=== PATIENT | female | born 1960 | race Caucasian/White ===

== ENCOUNTER 2016-11-15 06:30 | Day surgery (SDC) | payer MEDICARE ==
[~2016-11-15] VITALS: Ht 162.6 cm; Wt 72.6 kg
--- NOTE | ~2016-11-15 | OP ---
PATIENT NAME: DARWIN REYNOSO MEDICAL RECORD: [id number] :60 LOCATION:D[facility] ADMISSION DATE: SURGEON: MONSTER CORTEZ DPM DATE OF OPERATION: 11/15/2016 PREOPERATIVE DIAGNOSIS: Arthritis, left hallux IPJ. POSTOPERATIVE DIAGNOSIS: Arthritis, left hallux IPJ. PROCEDURE: Left hallux IPJ fusion. ANESTHESIA: Local with IV sedation utilizing lidocaine and Marcaine plain, approximately 5 cc total around the left hallux. HEMOSTASIS: Left ankle tourniquet at 250 mmHg. PREOPERATIVE DETAILS: The patient was taken to the OR and placed on the operating table in supine position. This was followed by induction of anesthesia and infiltration of local anesthetic. The left extremity was then prepped and draped in the usual aseptic technique followed by exsanguination and inflation of tourniquet. A 15 blade was used to create a transverse incision across the dorsal aspect of the hallux IPJ. The incision was deepened down to the extensor longus tendon, which was transected. The head of the proximal phalanx and the base of the distal phalanx were then delivered. A sagittal saw was used to resect both. The fusion site was then temporarily fixated with a K-wire. Good alignment was noted with the C-arm. Overdrill was performed and a 40-mm 3.5 headless screw was placed across the fusion site with excellent internal rigid fixation. Verification of good placement was done via C-arm. The wound was flushed and the extensor longus tendon was reapproximated with 2-0 Vicryl. The subcutaneous tissue was reapproximated with 4-0 Rapide and the skin was closed with 4-0 Rapide in a subcuticular technique. A small stab incision on the distal aspect of the hallux was also closed with 4-0 Rapide in a simple interrupted technique. Incisions were then augmented with Dermabond followed by Adaptic, 4 x 4 and Paul and Coban. Tourniquet was deflated. POSTOPERATIVE DETAILS: The patient tolerated the procedure well and left the OR with vital signs stable and vascular status at preoperative levels. The patient was transported to recovery per anesthesia in stable condition. TRANSINT:[id number] Voice Confirmation ID: [id number] DOCUMENT ID: [id number] MONSTER CORTEZ DPM CC: [id number] DICTATION DATE: 11/15/16 1102 FOOD TESTER: 11/15/16 1251 REG [facility] [address] [id number]
[2016-11-15] MEDS ORDERED: NEURONTIN800 MG PO (07:13)
[2016-11-15] MEDS ORDERED: LEVOTHYROXINE50 MCG PO (07:13)
[2016-11-15] MEDS ORDERED: HCTZ25 MG PO (07:14)
[2016-11-15] MEDS ORDERED: ZANAFLEX4 MG PO (07:14)
[2016-11-15] MEDS ORDERED: ZOVIRAX400 MG PO (07:15)
[2016-11-15] MEDS ORDERED: XANAX0.5 MG PO (07:18)
[2016-11-15] MEDS ORDERED: DULERA 200 MCG8.8 GM INH (07:18)
[2016-11-15] MEDS ORDERED: AMBIEN5 MG PO (07:19)
[2016-11-15] MEDS ORDERED: ESTRACE1 MG PO (07:19)
[2016-11-15] MEDS ORDERED: PERCOCET 5-3251 TAB PO (07:19)
[2016-11-15] MEDS ORDERED: RISPERDAL1 MG PO (07:19)
[2016-11-15] MEDS ORDERED: LOTENSIN40 MG PO (07:20)
[2016-11-15] MEDS ORDERED: MIRALAX17 GM PO (07:28)
[2016-11-15 07:32] VITALS: BP 130/60; Ht 162.6 cm; Wt 72.6 kg
[2016-11-15 08:05] LABS: HEMATOCRIT 37.6 % (36.0-48.0); HEMOGLOBIN 13.5 g/dL (12-16); MCH 31.4 pg (26.0-34.0); MCHC 35.9 g/dL (31.0-37.0); MCV 87.4 fL (80.0-100.0); MEAN PLATELET VOLUME 9.6 fL (7.4-10.4); RBC 4.3 10x6/uL (4.00-5.40); RDW 12.3 % (11.5-14.5); WBC 6.5 10x3/uL (4.8-10.8)
[2016-11-15 08:33] LABS: CALC OSMOLALITY 276 mosm/kg (275-300); CALCIUM 9.4 mg/dL (8.5-10.1); CARBON DIOXIDE 27.2 mmol/L (21.0-32.0); CHLORIDE - SERUM 102 mmol/L (98-107); CREATININE - SERUM 0.7 mg/dL (0.6-1.3); GLUCOSE 128 mg/dL (74-106); POTASSIUM - SERUM 3.2 mmol/L (3.5-5.1); SODIUM 138 mmol/L (136-145); UREA NITROGEN 10 mg/dL (7-18); eGFR NON AFRICAN AMERICAN > 90 mL/min (90-120)
== END 2016-11-15 13:00 | disposition home or self-care (01) ==
LOC: D.OPS 06:30 → D.PAN 09:30 → D.OPS 09:30
PROVIDERS: Anesthesiology
DX: M19.072 Primary osteoarthritis, left ankle and foot (principal); J45.909 Unspecified asthma, uncomplicated; I10 Essential (primary) hypertension; E11.9 Type 2 diabetes mellitus without complications; E03.9 Hypothyroidism, unspecified; J43.9 Emphysema, unspecified; Z01.812 Encounter for preprocedural laboratory examination

== ENCOUNTER → 2018-09-05 17:58 | Outpatient (CLI) | payer MEDICARE ==
[2016-11-15 07:32] VITALS: BMI 27.5
[~2018-09-05 17:58] MED LIST: AMBIEN5 MG PO; DULERA 200 MCG8.8 GM INH; ESTRACE1 MG PO; HCTZ25 MG PO; LEVOTHYROXINE50 MCG PO; LOTENSIN40 MG PO; MIRALAX17 GM PO; NEURONTIN800 MG PO; PERCOCET 5-3251 TAB PO; RISPERDAL1 MG PO; XANAX0.5 MG PO; ZANAFLEX4 MG PO; ZOVIRAX400 MG PO
== END | disposition home or self-care (01) ==
LOC: D.MAMMO 13:30
PROVIDERS: ATTEND General Practice
DX: Z12.31 Encounter for screening mammogram for malignant neoplasm of breast (principal)